=== PATIENT | female | born 1980 | race Two or more races ===

== ENCOUNTER 2023-08-15 07:38 | Emergency (ER) | payer OTHER ==
[~2023-08-15] VITALS: Ht 149.9 cm; Wt 58.1 kg
[2023-08-15 09:24] LABS: HEMATOCRIT 37.5 % (36.0-45.00); HEMOGLOBIN 12.9 g/dL (12.0-15.00); MEAN CELL VOLUME 85.4 fL (80.00-100.00); MEAN CORPUSCULAR HEMOGLOBIN 29.5 pg (27.00-32.0); MEAN CORPUSCULAR HGB CONC 34.5 g/dl (32.0-36.0); PLATELET COUNT 309 K/uL (150-450); RED BLOOD COUNT 4.38 M/uL (4.00-6.00); RED CELL DISTRIBUTION WIDTH 13.4 % (11.5-14.5)
[2023-08-15 09:48] LABS: ALBUMIN 4.4 gm/dL (3.4-5.0); BILIRUBIN TOTAL 0.6 mg/dL (0.3-1.2); CALCIUM 9.4 mg/dL (8.5-10.1); CREATININE SERUM 0.91 mg/dL (0.55-1.02); GFR 67.79; GLOBULINA 4.3 G/DL (2.4-3.5); POTASSIUM 3.49 mEq/L (3.5-5.1); TOTAL PROTEIN 8.7 gm/dL (6.4-8.2)
== END 2023-08-15 10:26 | disposition home or self-care (01) ==
LOC: EDBD 07:39 → ER 07:39
PROVIDERS: General Practice
DX: B34.9 Viral infection, unspecified (principal); R11.10 Vomiting, unspecified